=== PATIENT | female | born 1935 | race Caucasian/White ===

== ENCOUNTER 2024-11-13 12:27 | Inpatient (IN) | payer OTHER, SELFPAY ==
[2024-11-13] VITALS (10 sets, daily range): BP systolic 131–197; BP diastolic 64–144; BMI 27.7
--- NOTE | 2024-11-13 09:18 | ED.GENMED ---
History of Present Illness
<Lisette Galvez PA-C - Last Filed: 11/13/24 11:58>
General
Chief Complaint: Fall
Source: patient and ambulance crew
Exam Limitations: none
Time Seen by Provider: 11/13/24 09:14
History of Present Illness
History of Present Illness:
89yoF with a history of hypertension, hyperlipidemia, type 2 diabetes, and CKD presenting via EMS for evaluation after a fall around 7:30am this morning. Patient was in her kitchen this morning making tea. She states her slipper got caught and she
fell directly on her right hip. She denies any head strike or loss of consciousness. Patient was able to crawl on the floor and called EMS. Patient's only current complaint is right hip pain. She denies any headache, neck pain, back pain,
shortness of breath. She takes a baby aspirin daily. No prior surgeries to the right hip. Patient lives independently and has a cane but does not use it regularly.
Past History
<Lisette Galvez PA-C - Last Filed: 11/13/24 11:58>
Past History
ED Past Medical History: HTN, Hypercholesterolemia and NIDDM
ED Past Surgical History: Appendectomy
Social History
Tobacco: Non-smoker
Phy Exam
<Lisette Galvez PA-C - Last Filed: 11/13/24 11:58>
General Physical Exam
General Presentation: well appearing
General Skin: warm and dry
General Habitus: normal and elderly
General Mental: alert
ENT Exam
ENT Exam: normocephalic and other (No external signs of head trauma. No cervical spine tenderness.)
Eye Exam
Eye Exam: PERRL and conjunctiva normal
Cardiovascular Exam
Cardiovascular Exam: normal peripheral pulses (2+ DP pulses bilaterally)
Pulmonary Exam
Pulmonary Exam: lungs clear, no respiratory distress, no rales, chest non tender, no crackles and no rhonchi
Gastrointestinal Exam
Gastrointestinal Exam: non tender, soft and non distended
Neurological Exam
Neurological Exam: alert
Mainor Coma Scale
Eye Opening: Spontaneous
Verbal Response: Oriented
Motor Response: Obeys Commands
GCS Total Score: 15
Musculoskeletal Exam
Musculoskeletal Exam: other (R leg is shortened and externally rotated. Swelling noted to R groin region. Unable to range R hip joint. Able to wiggle toes and sensation intact. 2+ DP pulse.)
Skin Exam
Skin Exam: warm/dry and other (Skin tear noted to L elbow)
Psychiatric Exam
Psychiatric Exam: normal mood/affect
<Nathan Bull DO - Last Filed: 11/13/24 10:49>
Mainor Coma Scale
GCS Total Score: 15
Course
<Lisette Galvez PA-C - Last Filed: 11/13/24 11:58>
Orders/Labs/Results
Orders:
Orders
11/13/24 09:16
Fentanyl Citrate/Pf [Sublimaze] 50 mcg IV NOW STA
Tetanus/Diphth/Acelpertussis [Adacel] 0.5 ml IM .ONCE ONE
CR Femur - Right Min 2 Vw Urgent
Comment:
Reason For Exam: R hip pain, fall
Pelvis, 1 or 2 Views CR [CR Pelvis - 1 Or 2 Views ] Urgent
Comment:
Reason For Exam: R hip pain
11/13/24 09:37
Comprehensive Metabolic Panel Urgent
11/13/24 09:38
Complete Blood Count/With Diff Urgent
11/13/24 Lunch
NPO
Allow oral meds: Yes
Allow clear liquids: Sips of Clears
11/13/24 11:01
ORTHOPEDIC CONSULT Urgent
Consulting Provider: Alex Pena
Was physician already notified: Yes
11/13/24 11:27
EKG [Electrocardiogram (*1)] Routine
Reason for Study: Other
Other Reason for Exam: preoperative clearance
11/13/24 11:49
Code Status As Directed
Resuscitation Status: Full Code
Bisacodyl [Dulcolax] 10 mg RECTAL [id number] PRN
Docusate W/Senna [Senokot-S] 1 tablet PO BIDPRN PRN
Polyethylene Glycol Powder [Miralax] 17 grams PO DAILYPRN PRN
Activity As Directed
Activity Level: As Tolerated
Pneumatic Compression Sleeves As Directed
Type: Knee high
DX Deep Vein Thrombosis Video Routine
11/13/24 11:54
CT Pelvis W/o Iv Contrast Urgent
Comment:
Reason For Exam: R hip fracture, ortho request
HYDROmorphone [Dilaudid] 0.2 mg IV Q4HPRN PRN
11/14/24 06:00
Complete Blood Count/With Diff IN AM
Comprehensive Metabolic Panel IN AM
Creatine Phosphokinase IN AM
Magnesium IN AM
PTT IN AM
Prothrombin Time IN AM
TSH IN AM
Abnormal Lab Results
11/13/24 11/13/24
09:37 09:38
MCHC 32.1 L g/dL
(33.0-37.0)
MPV 10.6 H fL
(7.4-10.4)
Absolute Neuts (auto) 7.2 H 10^3/uL
(1.4-6.5)
Absolute Lymphs (auto) 0.9 L 10^3/uL
(1.2-3.4)
Neutrophils % 79.8 H %
(42.2-75.2)
Lymphocytes % 10.1 L %
(20.5-51.1)
BUN 44 H mg/dl
(7-17)
Creatinine 1.5 H mg/dL
(0.6-1.0)
Glucose 198 H mg/dl
(70-99)
11/13/24 09:38
11/13/24 09:37
Vital Signs
Initial and Last Documented VS:
Initial Vital Signs
Temp Pulse Resp BP Pulse Ox
97.5 F 67 16 167/81 97
11/13/24 09:12 11/13/24 09:12 11/13/24 09:12 11/13/24 09:12 11/13/24 09:12
Last Documented Vital Signs
Temp Pulse Resp BP Pulse Ox
97.5 F 58 16 151/65 99
11/13/24 09:12 11/13/24 10:40 11/13/24 10:40 11/13/24 11:00 11/13/24 11:00
<Nathan Bull, DO - Last Filed: 11/13/24 10:49>
Orders/Labs/Results
Orders:
Orders
11/13/24 09:16
Fentanyl Citrate/Pf [Sublimaze] 50 mcg IV NOW STA
Tetanus/Diphth/Acelpertussis [Adacel] 0.5 ml IM .ONCE ONE
CR Femur - Right Min 2 Vw Urgent
Comment:
Reason For Exam: R hip pain, fall
Pelvis, 1 or 2 Views CR [CR Pelvis - 1 Or 2 Views ] Urgent
Comment:
Reason For Exam: R hip pain
11/13/24 09:37
Comprehensive Metabolic Panel Urgent
11/13/24 09:38
Complete Blood Count/With Diff Urgent
11/13/24 Lunch
NPO
Allow oral meds: Yes
Allow clear liquids: Sips of Clears
11/13/24 11:01
ORTHOPEDIC CONSULT Urgent
Consulting Provider: Alex Pena
Was physician already notified: Yes
11/13/24 11:27
EKG [Electrocardiogram (*1)] Routine
Reason for Study: Other
Other Reason for Exam: preoperative clearance
11/13/24 11:49
Code Status As Directed
Resuscitation Status: Full Code
Bisacodyl [Dulcolax] 10 mg RECTAL [id number] PRN
Docusate W/Senna [Senokot-S] 1 tablet PO BIDPRN PRN
Polyethylene Glycol Powder [Miralax] 17 grams PO DAILYPRN PRN
Activity As Directed
Activity Level: As Tolerated
Pneumatic Compression Sleeves As Directed
Type: Knee high
DX Deep Vein Thrombosis Video Routine
11/13/24 11:54
CT Pelvis W/o Iv Contrast Urgent
Comment:
Reason For Exam: R hip fracture, ortho request
HYDROmorphone [Dilaudid] 0.2 mg IV Q4HPRN PRN
11/14/24 06:00
Complete Blood Count/With Diff IN AM
Comprehensive Metabolic Panel IN AM
Creatine Phosphokinase IN AM
Magnesium IN AM
PTT IN AM
Prothrombin Time IN AM
TSH IN AM
Abnormal Lab Results
11/13/24 11/13/24
09:37 09:38
MCHC 32.1 L g/dL
(33.0-37.0)
MPV 10.6 H fL
(7.4-10.4)
Absolute Neuts (auto) 7.2 H 10^3/uL
(1.4-6.5)
Absolute Lymphs (auto) 0.9 L 10^3/uL
(1.2-3.4)
Neutrophils % 79.8 H %
(42.2-75.2)
Lymphocytes % 10.1 L %
(20.5-51.1)
BUN 44 H mg/dl
(7-17)
Creatinine 1.5 H mg/dL
(0.6-1.0)
Glucose 198 H mg/dl
(70-99)
11/13/24 09:38
11/13/24 09:37
Vital Signs
Initial and Last Documented VS:
Initial Vital Signs
Temp Pulse Resp BP Pulse Ox
97.5 F 67 16 167/81 97
11/13/24 09:12 11/13/24 09:12 11/13/24 09:12 11/13/24 09:12 11/13/24 09:12
Last Documented Vital Signs
Temp Pulse Resp BP Pulse Ox
97.5 F 58 16 151/65 99
11/13/24 09:12 11/13/24 10:40 11/13/24 10:40 11/13/24 11:00 11/13/24 11:00
<Lisette Galvez PA-C - Last Filed: 11/13/24 11:58>
MDM/Problems Addressed
Differential Diagnosis Includes:
89yoF here after a mechanical fall at home this morning. Fell directly on R hip and RLE is shortened and externally rotated on arrival. Only other injury appreciated on exam is a skin tear to the L arm. She denies head strike and there are no
external signs of head trauma. No cervical spine tenderness noted. Differential diagnosis includes but is not limited to: hip fracture, femur fracture, hip dislocation
Initial ED plan: Check basic labs and pelvic/R femur x-rays. IV fentanyl for pain. Update Tdap.
<Lisette Galvez PA-C - Last Filed: 11/13/24 11:58>
*Critical Care Note
Total Time (30-74mins, 75-104mins- exclusive of procedures): Not Applicable
<Lisette Galvez PA-C - Last Filed: 11/13/24 11:58>
Update Note
Update Note:
X-rays confirm an intertrochanteric fracture. Orthopedics notified and patient admitted for further management.
ED Attending Note
<Lisette Galvez PA-C - Last Filed: 11/13/24 11:58>
-
Portions of this chart may have been created with voice recognition software.� Occasional wrong word or��sound alike� substitutions may have occurred due to the inherent limitations of voice recognition software.
<Nathan Bull DO - Last Filed: 11/13/24 10:49>
ED Attending Note
Patient seen and examined by attending physician: Yes
I performed the substantive portion of visit, reviewed & personally made and approve the management plan that is documented in note by myself or ELI.: Yes
ED Attending Note:
Seen with PA examined independently elderly female slip and fall with a resulting right hip fracture
Discharge Plan
Departure
Patient Disposition: Admit
Date of Disposition: 11/13/24
Time of Disposition: 10:44
Presentation/result/management discussed w/ accepting MD/DO: Hospitalist
Discharge Problem:
Closed fracture of right hip
Prescriptions:
No Action
amlodipine 5 MG tablet
5 mg PO DAILY
simvastatin 20 MG tablet
40 mg PO QPM
fluoxetine 10 MG capsule
10 mg PO DAILY
glipizide 2.5 mg Tablet Extended Release 24hr
2.5 mg PO DAILY
aspirin 81 mg Tablet
81 mg PO DAILY
Referrals:
Annelise Schafer CRNP [Family Provider] -
Interventions
Interventions:
*Risk Screen - Suicide Last Done: 11/13/24 10:55
*General Assessment Last Done: 11/13/24 10:55
*Neglect/Abuse Screening Last Done: 11/13/24 10:55
ED-Musculoskeletal Assessment Last Done: 11/13/24 09:17
ED- Neurological Assessment Last Done: 11/13/24 09:17
ED-Skin Assessment Last Done: 11/13/24 09:17
Discharge Date and Time
Print Language: UZBEK
[2024-11-13] MEDS: ADACEL 0.5 ML IM (09:30)
[2024-11-13] MEDS: SUBLIMAZE 50 MCG IV (09:30)
[2024-11-13 09:46] LABS: % Basophils 0.4 % (0-2); % Eosinophils 3.9 % (0-6); % Immature Granulocytes 0.3 % (0-0.5); % Lymphocytes 10.1 % (20.5-51.1); % Monocytes 5.5 % (1.7-9.3); % Neutrophils 79.8 % (42.2-75.2); Absolute Eosinophils 0.4 10^3/uL (0-0.7); Absolute Lymphocytes 0.9 10^3/uL (1.2-3.4); Absolute Monocytes 0.5 10^3/uL (0.1-0.6); Absolute Neutrophils 7.2 10^3/uL (1.4-6.5); Hematocrit 39.6 % (37.0-47.0); Hemoglobin 12.7 g/dL (12.0-16.0); Mean Corp Hgb Conc. 32.1 g/dL (33.0-37.0); Mean Corpuscular Hgb 28.3 pg (27.0-31.0); Mean Corpuscular Volume 88.4 fL (81.0-99.0); Mean Platelet Volume 10.6 fL (7.4-10.4); Nucleated Red Blood Cells % 0 %; Platelet Count 245 10^3/uL (130-400); Red Blood Cell Count 4.48 10^6/uL (4.20-5.40); Red Cell Dist. Width 14.2 % (11.5-14.5)
[2024-11-13 10:17] LABS: ALT (SGPT) 17 U/L (0-35); AST (SGOT) 23 U/L (14-36); Albumin 4.3 g/dl (3.5-5.0); Alkaline Phosphatase 71 U/L (38-126); Blood Urea Nitrogen 44 mg/dl (7-17); Calcium 9.7 mg/dl (8.4-10.2); Carbon Dioxide 25 mmol/L (22-30); Chloride 104 mmol/L (98-107); Estimated Creatinine Clearance 23 ml/min; Glucose 198 mg/dl (70-99); Potassium 4.3 mmol/L (3.5-5.1); Sodium 141 mmol/L (135-145); Total Bilirubin 0.6 mg/dl (0.2-1.3); eGFR 33.52
--- NOTE | 2024-11-13 11:26 | W.PN.UPDATE ---
Update Note
Progress Note Update
I personally performed a history and physical exam of the patient and discussed management with the resident. I reviewed the resident's note and agree with the documented findings and plan of care HPI/CC.
89-year-old female who presents with a mechanical fall resulting in a right hip fracture. The patient reports this was a mechanical fall. She had no loss of consciousness/syncope. At baseline patient reports she can climb a flight of stairs or
walk around the block without having chest pain or shortness of breath.
Gen: NAD, AAOx3.
Eyes: EOMI, PERRLA, no scleral icterus.
Neck: supple.
CV: RRR, +S1/S2, no m/r/g. 2+ R DP pulse.
Resp: CTAB, no rales, wheezes, or rhonchi.
Abd: +BS, soft, NT, ND
Skin: No rashes.
Neuro: CN 2-12 intact, non-focal.
Psych: Normal mood and affect.
Lab Results
11/13/24 11/13/24
09:37 09:38
WBC 9.0
RBC 4.48
Hgb 12.7
Hct 39.6
MCV 88.4
MCH 28.3
MCHC 32.1 L
RDW 14.2
Plt Count 245
MPV 10.6 H
Abs Immat Gran (auto) 0.0
Absolute Neuts (auto) 7.2 H
Absolute Lymphs (auto) 0.9 L
Absolute Monos (auto) 0.5
Absolute Eos (auto) 0.4
Absolute Basos (auto) 0.0
Immature Gran % 0.3
Neutrophils % 79.8 H
Lymphocytes % 10.1 L
Monocytes % 5.5
Eosinophils % 3.9
Basophils % 0.4
Nucleated RBC % 0
Sodium 141
Potassium 4.3
Chloride 104
Carbon Dioxide 25
BUN 44 H
Creatinine 1.5 H
Estimated Creat Clear 23
eGFR 33.52
Glucose 198 H
Calcium 9.7
Total Bilirubin 0.6
AST 23
ALT 17
Alkaline Phosphatase 71
Total Protein 7.0
Albumin 4.3
R femur/pelvis Xray: ACUTE COMMINUTED INTERTROCHANTERIC FRACTURE of the RIGHT PROXIMAL FEMUR.
Acute comminuted intertrochanteric right proximal femur fracture:
-Regarding perioperative cardiovascular risk assessment for noncardiac surgery, the patient's risk factors include DM2 and CKD3b. Currently the patient has no evidence of stable or unstable angina or decompensated congestive heart failure. MET
score > 4. I recommend proceeding with any planned orthopedic surgery (moderate risk by definition) as the benefit outweighs the risk at this time. [employer] message sent to Dr. Pena at 1133 on 11/13/24 to report on this.
Other problems:
DM2: SSI/accuchecks, check a1c
Essential HTN: cont Norvasc
HLD: cont statin
--- NOTE | 2024-11-13 13:10 | HPS.HSE ---
Family Physician
-
Family Physician: LANA Meredith
Chief Complaint
-
- Severe Pain in the right hip
History of Present Illness
89-year-old female, full code, with a past medical history of HTN, HLD, Diabetes mellitus type 2, CKD presented to the ED because she fell and tripped, landing on her right hip in her kitchen. She then felt severe pain, and crawled to her phone
where she called 911 and was brought to the ED via EMS. She did not hit her head or lose consciousness.
Medical History
Past Medical History
Past Medical History: Reports HTN, Hypercholesterolemia, NIDDM and Other (Chronic kidney disease)
Past Surgical History: Reports None
Social History
Tobacco: Former Smoker
Alcohol: None
Drug: None
Family History
Family History: Not pertinent
Allergies / Home Medications
Allergies reflects when Allergies were last updated in [facility].
Home Medications with original date entered in [facility]
Allergy/Medication List:
Allergies
Allergy/AdvReac Type Severity Reaction Status Date / Time
lisinopril Allergy Swelling Verified 11/13/24 09:16
Home Medications
amlodipine 5 mg tablet 5 mg PO DAILY 07/07/21
fluoxetine 10 mg capsule 10 mg PO DAILY 07/07/21
simvastatin 20 mg tablet 40 mg PO QPM 07/07/21
aspirin 81 mg tablet 81 mg PO DAILY 11/13/24
glipizide 2.5 mg tablet, extended release 24 hr 2.5 mg PO DAILY 11/13/24
Review of Systems
-
History Source: Patient
A 12 point ROS was completed and negative except as noted: Yes
Musculoskeletal: Reports Joint Pain (right upper extremity), Joint Swelling (right upper extremity) and Edema (right upper extremity)
Physical Exam
Vital Signs
Vital Signs
Temp Pulse Resp BP Pulse Ox
97.5 F 58 16 151/65 99
11/13/24 09:12 11/13/24 10:40 11/13/24 10:40 11/13/24 11:00 11/13/24 11:00
Physical Exam
General: Well Developed
Respiratory: Clear; No Rales, Rhonchi or Crackles
Cardiac: S1/S2 and Regular Rhythm
GI: Soft, Non Tender, Non Distended and Normal Bowel Sounds
Musculoskeletal: Other (There is severe tenderness to palpation of right upper extremity with limited range of motion and edema)
Skin: Warm and Dry
Neuro: Awake, Alert, Oriented, AO x 3 and DTR's Intact & Symmetrical
Psych: Calm
Laboratory Results
-
11/13/24 09:38
11/13/24 09:37
Laboratory Results
Total Bilirubin 0.6 mg/dl (0.2-1.3) 11/13/24 09:37
AST 23 U/L (14-36) 11/13/24 09:37
ALT 17 U/L (0-35) 11/13/24 09:37
Alkaline Phosphatase 71 U/L (38-126) 11/13/24 09:37
Data Reviewed
-
Diagnostic Radiology: Report Reviewed by me and Discussed with Physician
Lab Data: Labs Reviewed by me and Discussed with Physician
Impression/Plan
-
Acute comminuted intertrochanteric fracture of the right proximal femur:
- Ortho was consulted
- N.p.o. for anticipation of procedure
- Pain management IV Dilaudid 0.2 mg Q4 hourly and Tylenol
- Preoperative clearance
- CBC CMP PT/INR ordered for the a.m.
- Continue IV normal saline
- PT OT was consulted
Diabetes mellitus type 2:
-Glucose 198
- Sliding scale insulin
- Accu-Cheks as needed
- A1c ordered
CKD 3B:
- Creatinine is 1.5 today and is near baseline
-Blood pressure control
- Avoid nephrotoxins
Essential hypertension:
- Continue Norvasc
Hyperlipidemia:
- Continue simvastatin
Depression:
- Continue fluoxetine
Stop aspirin because of anticipated surgery
DVT prophylaxis: SCDs
Full code
[2024-11-13] MEDS: DILAUDID 0.2 MG IV (13:28)
[2024-11-13] MEDS: NSS 1000 IV (15:41)
[2024-11-13] MEDS: NORVASC 5 MG PO (15:48)
[2024-11-13] MEDS: PROZAC 10 MG PO (17:16)
[2024-11-13] MEDS: APRESOLINE 10 MG IV (17:16)
[2024-11-13] MEDS: DILAUDID 0.5 MG IV ×2 (17:17→21:21)
[2024-11-13] MEDS: LIPITOR 20 MG PO (17:45)
--- NOTE | 2024-11-13 21:51 | W.PN.UPDATE ---
Update Note
Progress Note Update
Patient was seen evaluated at bedside. Had a long discussion the patient as well as her daughter on the telephone. They elected to proceed with surgery.
89-year-old female right comminuted peritrochanteric femur fracture.
Nonweightbearing right lower extremity
N.p.o. at midnight
Please hold anticoagulation preparation for OR in the morning
Medical management per primary team
Plan: 2 OR tomorrow for operative fixation insertion long cephalomedullary nail for four-part peritrochanteric femur fracture pending or availability and medical clearance.
Formal consult note to follow
[2024-11-13 22:53] LABS: Glucose - Point of Care 195 mg/dl (70-99)
[2024-11-14] VITALS (17 sets, daily range): BP systolic 95–185; BP diastolic 51–79
--- NOTE | 2024-11-14 02:58 | W.PN.UPDATE ---
Update Note
Progress Note Update
-Reported by the nursing staff that the patient has difficult swallowing water and meds.
Diet changed to NPO and speech eval in am ordered.
[2024-11-14] MEDS: DILAUDID 0.5 MG IV (04:42)
[2024-11-14] MEDS: NSS 1000 IV ×3 (05:33→23:07)
[2024-11-14 05:50] LABS: Glucose - Point of Care 160 mg/dl (70-99)
--- NOTE | 2024-11-14 07:26 | W.PN.HOSP.TC ---
Today's Communication/Plan
-
see plan
Assessment / Plan
Assessment / Plan
Gen: NAD, AAOx3.
Eyes: EOMI, PERRLA, no scleral icterus.
Neck: supple.
CV: remains RRR, +S1/S2, no m/r/g.
Resp: CTAB anteriorly, no rales, wheezes, or rhonchi.
Abd: remains +BS, soft, NT, ND
Skin: No rashes.
Neuro: CN 2-12 intact, non-focal.
Psych: Normal mood and affect.
R femur/pelvis Xray: ACUTE COMMINUTED INTERTROCHANTERIC FRACTURE of the RIGHT PROXIMAL FEMUR.
Acute comminuted intertrochanteric right proximal femur fracture:
-Regarding perioperative cardiovascular risk assessment for noncardiac surgery, the patient's risk factors include DM2 and CKD3b. Currently the patient has no evidence of stable or unstable angina or decompensated congestive heart failure. MET
score > 4. I recommend proceeding with any planned orthopedic surgery (moderate risk by definition) as the benefit outweighs the risk at this time. [employer] message sent to Dr. Pena at 1133 on 11/13/24 to report on this.
-OR today as per ortho
Other problems:
DM2: SSI/accuchecks, check a1c
Essential HTN: cont Norvasc
HLD: cont statin
CKD3b
FULL/SCDs
Anticipated Discharge: 24 - 48 hours
Subjective/Interval History
-
Date of Service: November 14, 2024
No new complaints. Denies CP/SOB.
Objective Data
-
Labs:
Laboratory Results
11/14/24
06:42
WBC Pending
Hgb Pending
Hct Pending
Plt Count Pending
PT Pending
INR Pending
APTT Pending
Sodium Pending
Potassium Pending
Chloride Pending
Carbon Dioxide Pending
BUN Pending
Creatinine Pending
Glucose Pending
Calcium Pending
Total Bilirubin Pending
AST Pending
ALT Pending
Alkaline Phosphatase Pending
Vital Signs:
Vital Signs
Temp Pulse Resp BP Pulse Ox
98.1 F 84 16 150/74 95
11/13/24 23:04 11/13/24 23:04 11/13/24 23:04 11/13/24 23:04 11/14/24 00:31
I&O
11/13/24 11/14/24 11/15/24
06:59 06:59 06:59
Intake Total 1680 / 1680
Output Total 250 / 250
Balance 1430 / 1430
--- NOTE | 2024-11-14 07:49 | CON.ORTHO ---
Consultation
-
Date/Time Consultation Performed: 11/13/2024 9:30 PM
Consultation - Orthopedics
History
HPI: 89-year-old independent female history of hypertension hyperlipidemia type 2 diabetes chronic kidney disease presented to the emergency department status post fall at home with complaints of right hip pain and inability to bear weight. She was
subsequently diagnosed with a comminuted right peritrochanteric femur fracture. She was admitted to the hospitalist service and orthopedics was consulted. I had a long discussion with the patient as well as her daughter on the telephone. Patient
reports pain well localized to the right lower extremity. Pain is made worse with direct palpation affected area with attempted ambulation. Patient reports to me that she is quite independent lives alone and does not use any assistive devices for
walking continues to drive.
Allergies / Home Medications
Past medical history: Hypertension, hyper cholesterolemia, non-insulin dependent diabetes, chronic kidney disease
Past surgical history: Appendectomy
Social history: Lives independently, non-smoker. Has 2 daughters that live locally
Family history: Not pertinent
Allergy/AdvReac Type Severity Reaction Status Date / Time
lisinopril Allergy Swelling/lip Verified 11/13/24 22:31
swelling
�Medication �Instructions �Recorded
amlodipine 5 mg tablet 5 mg PO DAILY 07/07/21
fluoxetine 10 mg capsule 10 mg PO DAILY 07/07/21
simvastatin 20 mg tablet 40 mg PO QPM 07/07/21
aspirin 81 mg tablet 81 mg PO DAILY 11/13/24
glipizide 2.5 mg tablet, extended 2.5 mg PO DAILY 11/13/24
release 24 hr
Vital Signs / Lab Results
Temp Pulse Resp BP Pulse Ox
97.7 F 84 16 185/79 96
11/14/24 07:30 11/14/24 07:30 11/14/24 07:30 11/14/24 07:30 11/14/24 07:30
10 point review systems reviewed and negative unless otherwise stated
General: Pleasant, no acute distress
Musculoskeletal right lower extremity
Skin intact, no erythema recommended standing
Mild to moderate swelling noted right thigh
Extremity shortened externally rotated
Tenderness palpation over lateral trochanteric flare and groin
No palpable ipsilateral knee effusion
Positive EHL, FHL, ankle dorsiflexion, plantarflexion
Brisk cap refill distally
No other areas of bony tenderness palpation or crepitation of long bones or joints on tertiary exam
Diagnostic studies
X-rays right femur pelvis as well as CT scan right hip independently viewed by myself. There is evidence of comminuted right peritrochanteric femur fracture. I would characterize this as somewhat of a four-part fracture with greater trochanteric
component, subtrochanteric component as well as basicervical femoral neck fracture. There is also noted to be displaced lesser trochanteric fracture
Assessment / Plan
89-year-old community ambulator status post fall with comminuted right peritrochanteric femur fracture. I had a long and detailed discussion with the patient as well as her daughters regarding diagnosis and treatment options. We discussed both
surgical and nonsurgical options. We discussed both arthroplasty and fixation options. After discussion we mutually agreed to proceed with operative fixation in the form of insertion along supplemental nail. We discussed risks benefits and
alternatives to surgery. We discussed the usual expected perioperative postoperative course. After discussion written informed consent was obtained
Nonweightbearing right lower extremity
N.p.o.
Please hold anticoagulation
Medical management per primary team
Pain control
Plan: 2 OR for operative fixation right peritrochanteric femur fracture pending OR availability and medical clearance
[2024-11-14] MEDS: PROZAC PO (08:00)
[2024-11-14] MEDS: NORVASC PO (08:00)
[2024-11-14 08:19] LABS: % Basophils 0.3 % (0-2); % Eosinophils 0.2 % (0-6); % Immature Granulocytes 0.3 % (0-0.5); % Monocytes 7.2 % (1.7-9.3); Absolute Monocytes 0.7 10^3/uL (0.1-0.6); Hematocrit 34.4 % (37.0-47.0); Mean Corpuscular Hgb 28.3 pg (27.0-31.0); Mean Corpuscular Volume 88.4 fL (81.0-99.0); Mean Platelet Volume 11.1 fL (7.4-10.4); Nucleated Red Blood Cells % 0 %; Platelet Count 224 10^3/uL (130-400); Red Blood Cell Count 3.89 10^6/uL (4.20-5.40); Red Cell Dist. Width 14.6 % (11.5-14.5); White Blood Cell Count 9.8 10^3/uL (4.8-10.8)
[2024-11-14 08:31] LABS: INR 1.14; PT 14.9 Sec (11.4-14.6)
[2024-11-14 08:43] LABS: ALT (SGPT) 17 U/L (0-35); AST (SGOT) 29 U/L (14-36); Albumin 3.7 g/dl (3.5-5.0); Alkaline Phosphatase 62 U/L (38-126); Blood Urea Nitrogen 37 mg/dl (7-17); Calcium 9.4 mg/dl (8.4-10.2); Carbon Dioxide 26 mmol/L (22-30); Chloride 107 mmol/L (98-107); Creatine Phosphokinase 406 U/L (30-135); Estimated Creatinine Clearance 23 ml/min; Glucose 163 mg/dl (70-99); Magnesium 2.1 mg/dl (1.6-2.3); Sodium 142 mmol/L (135-145); Total Bilirubin 0.9 mg/dl (0.2-1.3); Total Protein 6.4 g/dl (6.3-8.2); eGFR 33.52
[2024-11-14] MEDS: NOVOLOG FLEXPEN-LOW RESISTANCE SC ×2 (08:55→11:41)
[2024-11-14 09:13] LABS: TSH 0.87 uIU/ml (0.47-4.68)
--- NOTE | 2024-11-14 10:34 | OR.RPT ---
Operative Report
Operative Report
Date
11/14/2024
Anesthesia Type:
General
Operative Indications:
Comminuted displaced right peritrochanteric femur fracture
Operative Findings :
Comminuted displaced right peritrochanteric femur fracture, greater trochanteric component, basicervical femoral neck component, intertrochanteric/subtrochanteric component
Complications:
None
Implants:
Dona Ana gamma nail 360 mm x 10 mm, 95 mm cephalomedullary screw, 42.5 x 5 mm, 45 x 5 mm interlocking screws
Procedure and Technique:
Insertion right long cephalomedullary nail
INDICATIONS FOR PROCEDURE:
Patient is an active independent 89-year-old female sustained mechanical fall onto her right hip ultimately diagnosed with a right peritrochanteric femur fracture. Discussed risks benefits and alternatives with patient and family. Ultimately
elected to proceed with right cephalomedullary nail fixation of right hip fracture. Discussed risks benefits and alternatives to surgery. Discussed the use of expected perioperative and postoperative course. After discussion written informed
consent was obtained
OPERATIVE PROCEDURE:
The patient was seen and identified in the preoperative holding area. The operative extremity was marked and all questions were addressed with the patient. Patient was taken to the operating room and provided anesthesia by the anesthesia team.
They were placed supine on a radiolucent fracture table. The nonoperative extremity was placed in a scissored position and well padded to the contralalteral post of the fracture table. Extremities was placed in a well-padded fracture boot.
Biplanar fluoroscopy confirmed appropriate reduction after axial traction, adduction and slight internal rotation of the operative extremity. There was noted to be persistent displacement despite closed reduction. Operative extremity was then
prepped and draped in normal sterile fashion. Timeout was performed again identifying the operative extremity correctly. Preoperative antibiotics were addressed.
A small incision was made over the lateral femur in line with the lesser trochanter. Sharp dissection was carried through skin subcutaneous tissues deep fascial layer. A Gore clamp was placed on the inferior femoral neck and greater trochanter
and reduction was performed of the fracture. A small incision was made several fingerbreadths proximal to the greater trochanter. Sharp dissection was carried through skin and subcutaneous tissues and deep fascial layers. Guidepin was then
inserted under biplanar fluoroscopic guidance through the tip of the greater trochanter in accordance with the implant's operative technique. This was inserted to a depth just distal to the lesser trochanter. Proximal opening reamer was then
utilized. Stepwise reaming was then performed to accept a 10 mm nail. A cephalomedullary nail was then inserted to the appropriate depth. Trocar was then inserted through the aiming arm. Sharp dissection was then carried through skin and
subcutaneous tissues as well as deep fascial layers for an additional stab incision for the cephalomedullary screw. Guidewire was inserted through the trocar into the femoral neck and head. Appropriate position was confirmed under biplanar
fluoroscopy. Attention was made to minimize the tip apex distance. Measurements were obtained for the cephalomedullary screw. Cannulated drill was then utilized to the appropriate depth followed by the insertion of cannulated cephalomedullary
screw. Appropriate final position of the screw within the confines of the femoral neck and head was confirmed again on biplanar fluoroscopy. Setscrew was deployed. attention was then turned to the distal femur where 2 additional interlocking screws
were placed via perfect kasaan technique through small stab incisions. Final appropriate positioning was confirmed again on biplanar fluoroscopy. Satisfied with the extent of surgery, wounds were copiously irrigated with normal saline solution and
closed in a layered fashion utilizing 0 Vicryl for deep fascial layer, 2-0 Vicryl for subcu cutaneous layer and norma for skin. Sterile dressings were applied. Anesthesia was reversed and patient was taken to the operating room in a stable
condition. Postoperative plan to include weightbearing to patient's tolerance upper extremity. Recommend DVT prophylaxis Lovenox renally dosed x 28 days. Plan to see patient back in 2 weeks in the office
Disposition:
PACU stable condition
[2024-11-14 10:35] LABS: Glycohemoglobin (HgbA1c) 6.8 % (4.0-5.6)
[2024-11-14] MEDS: NSS IV ×2 (10:45→22:47)
[2024-11-14 10:59] LABS: Glucose - Point of Care 175 mg/dl (70-99)
--- NOTE | 2024-11-14 11:38 | PTCARENOTE ---
Dr Huang aware of patients respiratory status, evaluated patient. He is also aware of bedside glucose of 175
--- NOTE | 2024-11-14 12:50 | PTCARENOTE ---
Patient postop r-hip gamma nail, agitated/attempting to remove things and also attempting to hurt staff. Yelling expletives. In 2-point restraints at this point, hospitalist notified.
--- NOTE | 2024-11-14 14:05 | CM ---
Patient seen at bedside in [address] [place] [address]. Patient resting, CM called to patient daughter. Per daughter patient was living alone in an apartment with elevator. The complex is a 50+ senior apartment but independent living, patient was on 2nd floor. Patient
daughter stated that patient has no DME at home, no past SNF. Patient family lives in [place] and they are interested in possible SNF options there. Patient daughter stated that she has several sisters and they would be discussing options. Patient PCP is
Annelise Schafer and she uses the [facility] in [place]. CM reviwed list of SNF options and Medicare.gov to consider options pending PT/OT assessment and functional status. CM will continue to follow for discharge planning needs.
Plan; pending functional assessment; SNF vs home with VN, family considering options.
[2024-11-14] MEDS: ANCEF 5 IV ×2 (16:41→23:08)
[2024-11-14 17:59] LABS: Glucose - Point of Care 198 mg/dl (70-99)
[2024-11-14] MEDS: NOVOLOG FLEXPEN-LOW RESISTANCE 1 UNITS SC (18:15)
[2024-11-14] MEDS: LIPITOR 20 MG PO (18:17)
[2024-11-14] MEDS: COLACE PO (21:22)
[2024-11-14 22:06] LABS: Glucose - Point of Care 230 mg/dl (70-99)
[2024-11-15] VITALS (12 sets, daily range): BP systolic 113–171; BP diastolic 52–74; PULSE 95–98; O2SAT 94
[2024-11-15 07:32] LABS: Glucose - Point of Care 175 mg/dl (70-99)
[2024-11-15] MEDS: COLACE 100 MG PO (07:42)
[2024-11-15] MEDS: NOVOLOG FLEXPEN-LOW RESISTANCE 1 UNITS SC ×2 (07:42→17:06)
[2024-11-15] MEDS: LOVENOX 30 MG SC (07:45)
[2024-11-15] MEDS: NORVASC 5 MG PO (07:45)
[2024-11-15] MEDS: NSS 1000 IV (07:46)
[2024-11-15] MEDS: PROZAC 10 MG PO (07:46)
--- NOTE | 2024-11-15 08:32 | W.PN.HOSP.TC ---
Today's Communication/Plan
-
d/c
Assessment / Plan
Assessment / Plan
Gen: NAD, Awake and alert
Eyes: EOMI, PERRLA, no scleral icterus.
Neck: supple.
CV: RRR, +S1/S2, no m/r/g.
Resp: CTAB anteriorly, no rales, wheezes, or rhonchi.
Abd: +BS, soft, NT, ND
Skin: No rashes.
Neuro: remains CN 2-12 intact, non-focal.
Psych: Normal mood and affect.
R femur/pelvis Xray: ACUTE COMMINUTED INTERTROCHANTERIC FRACTURE of the RIGHT PROXIMAL FEMUR.
Acute comminuted intertrochanteric right proximal femur fracture:
-Regarding perioperative cardiovascular risk assessment for noncardiac surgery, the patient's risk factors include DM2 and CKD3b. Currently the patient has no evidence of stable or unstable angina or decompensated congestive heart failure. MET
score > 4. I recommend proceeding with any planned orthopedic surgery (moderate risk by definition) as the benefit outweighs the risk at this time. [employer] message sent to Dr. Pena at 1133 on 11/13/24 to report on this.
-s/p Insertion right long cephalomedullary nail on 11/14/24
Other problems:
DM2: a1c 6.8%, SSI/accuchecks
Essential HTN: cont Norvasc
HLD: cont statin
CKD3b
FULL/Lovenox
Medically cleared for d/c (pending AM labs). Case management aware.
Anticipated Discharge: Today
Subjective/Interval History
-
Date of Service: November 15, 2024
Denies CP/SOB.
Objective Data
-
Vital Signs:
Vital Signs
Temp Pulse Resp BP Pulse Ox
98.0 F 83 18 125/59 92
11/15/24 07:20 11/15/24 07:45 11/15/24 07:20 11/15/24 07:45 11/15/24 07:20
I&O
11/14/24 11/15/24 11/16/24
06:59 06:59 06:59
Intake Total 1680 / 1680 150 / 150
Output Total 250 / 250
Balance 1430 / 1430 150 / 150
[2024-11-15 09:06] LABS: Blood Urea Nitrogen 45 mg/dl (7-17); Calcium 8.4 mg/dl (8.4-10.2); Carbon Dioxide 25 mmol/L (22-30); Chloride 107 mmol/L (98-107); Estimated Creatinine Clearance 20 ml/min; Glucose 130 mg/dl (70-99); Potassium 4.7 mmol/L (3.5-5.1); Sodium 139 mmol/L (135-145); eGFR 28.84
[2024-11-15 11:38] LABS: Glucose - Point of Care 230 mg/dl (70-99)
[2024-11-15 12:05] LABS: Mean Corp Hgb Conc. 31.8 g/dL (33.0-37.0); Mean Corpuscular Hgb 28.5 pg (27.0-31.0); Mean Corpuscular Volume 89.4 fL (81.0-99.0); Mean Platelet Volume 11.6 fL (7.4-10.4); Platelet Count 178 10^3/uL (130-400); Red Blood Cell Count 2.46 10^6/uL (4.20-5.40); Red Cell Dist. Width 14.6 % (11.5-14.5)
[2024-11-15] MEDS: NOVOLOG FLEXPEN-LOW RESISTANCE 2 UNITS SC (12:29)
--- NOTE | 2024-11-15 13:27 | CM ---
Referrals sent to [facility], [facility], [facility], [facility]. Await responses, CM calling to SNF's to see if answer is available. Patient will need [employer] auth prior to leaving. CM will continue to follow for discharge planning
needs.
Plan; SNF
--- NOTE | 2024-11-15 14:06 | W.PN.ORTHO ---
Today's Communication / Plan
-
89-year-old female postop day 1 status post insertion right long cephalomedullary nail for comminuted peritrochanteric femur fracture
Weightbearing as tolerated right lower extremity
PT OT
Pain control
Medical management per primary team
DVT prophylaxis: Recommend renally dosed Lovenox x 28 days
Plan to see patient back in the office in 2 to 3 weeks for repeat clinical assessment radiographs removal of norma
Subjective
.
.:
Patient resting comfortably in bed. She reports that she was spending most of the day in a chair. Reports that she is able to get out of bed and take a few steps with a walker with therapy.
Vital Signs and Labs
.
Vital Signs and Labs:
Lab Results
11/15/24 05:00
11/15/24 05:00
Temp Pulse Resp BP Pulse Ox
99.2 F 89 18 124/71 98
11/15/24 11:11 11/15/24 11:11 11/15/24 11:11 11/15/24 11:11 11/15/24 11:11
PT 14.9 Sec (11.4-14.6) H 11/14/24 06:42
INR 1.14 11/14/24 06:42
Physical Exam
-
Musculoskeletal right lower extremity
Dressings with mild bloody drainage most proximal most distal dressing, moderate bloody drainage middle dressing
Positive EHL, FHL, ankle dorsiflexion, plantarflexion
Brisk refill
[2024-11-15] MEDS: DILAUDID 0.5 MG IV (14:37)
[2024-11-15] MEDS: LIPITOR 20 MG PO (16:59)
[2024-11-15 17:07] LABS: Glucose - Point of Care 154 mg/dl (70-99)
[2024-11-15] MEDS: COLACE PO (20:14)
[2024-11-15 21:35] LABS: Glucose - Point of Care 207 mg/dl (70-99)
[2024-11-16] MEDS: NSS IV (06:16)
[2024-11-16 06:50] LABS: Hemoglobin 10.2 g/dL (12.0-16.0); Mean Corp Hgb Conc. 31.9 g/dL (33.0-37.0); Mean Corpuscular Hgb 28.8 pg (27.0-31.0); Mean Corpuscular Volume 90.4 fL (81.0-99.0); Mean Platelet Volume 10.7 fL (7.4-10.4); Platelet Count 163 10^3/uL (130-400); Red Blood Cell Count 3.54 10^6/uL (4.20-5.40)
[2024-11-16 06:53] LABS: Blood Urea Nitrogen 40 mg/dl (7-17); Calcium 8.3 mg/dl (8.4-10.2); Carbon Dioxide 24 mmol/L (22-30); Chloride 107 mmol/L (98-107); Estimated Creatinine Clearance 23 ml/min; Glucose 170 mg/dl (70-99); Potassium 4.4 mmol/L (3.5-5.1); Sodium 140 mmol/L (135-145); eGFR 33.52
[2024-11-16 07:11] VITALS: BP 144/78
[2024-11-16] MEDS: PROZAC 10 MG PO (07:15)
[2024-11-16] MEDS: COLACE 100 MG PO (07:16)
[2024-11-16] MEDS: LOVENOX 30 MG SC (07:16)
[2024-11-16] MEDS: NORVASC 5 MG PO (07:17)
[2024-11-16 07:41] LABS: Glucose - Point of Care 163 mg/dl (70-99)
[2024-11-16] MEDS: NOVOLOG FLEXPEN-LOW RESISTANCE 1 UNITS SC (07:43)
--- NOTE | 2024-11-16 08:04 | W.PN.HOSP.TC ---
Addendum entered and electronically signed by Jack Glass MD 11/16/24 12:07:
Total time spent on d/c = 31 min. This included today's physical exam, progress note, review of laboratory and diagnostic data, preparation of discharge documents and prescriptions, and discussions about the pt's hospital course and discharge plan
with the patient and other medical terminologist involved in the patient's care.
Addendum entered and electronically signed by Jack Glass MD 11/16/24 11:52:
Acute postoperative delirium
R hip fx was ultifactorial and due to low level trauma and likely age related osteoporosis
Original Note:
Today's Communication/Plan
-
d/c
Assessment / Plan
Assessment / Plan
Gen: NAD, Awake and alert
Eyes: EOMI, PERRLA, no scleral icterus.
Neck: supple.
CV: remains RRR, +S1/S2, no m/r/g.
Resp: remains CTAB anteriorly, no rales, wheezes, or rhonchi.
Abd: +BS, soft, NT, ND
Skin: No rashes.
Neuro: continues to remain CN 2-12 intact, non-focal.
Psych: Normal mood and affect.
R femur/pelvis Xray: ACUTE COMMINUTED INTERTROCHANTERIC FRACTURE of the RIGHT PROXIMAL FEMUR.
Acute comminuted intertrochanteric right proximal femur fracture:
-s/p Insertion right long cephalomedullary nail on 11/14/24
-ABLA due to surgery, s/p 2U pRBCs
Other problems:
DM2: a1c 6.8%, SSI/accuchecks
Essential HTN: cont Norvasc
HLD: cont statin
CKD3b
FULL/Lovenox
Medically cleared for d/c. Case management aware.
Anticipated Discharge: Today
Subjective/Interval History
-
Date of Service: November 16, 2024
Denies CP/SOB.
Objective Data
-
Labs:
Laboratory Results
11/16/24
05:45
WBC 10.0
Hgb 10.2 L D
Hct 32.0 L
Plt Count 163
Sodium 140
Potassium 4.4
Chloride 107
Carbon Dioxide 24
BUN 40 H
Creatinine 1.5 H
Glucose 170 H
Calcium 8.3 L
Vital Signs:
Vital Signs
Temp Pulse Resp BP Pulse Ox
98.6 F 88 17 144/78 92
11/15/24 23:38 11/16/24 07:17 11/15/24 23:38 11/16/24 07:17 11/15/24 15:31
I&O
11/15/24 11/16/24 11/17/24
06:59 06:59 06:59
Intake Total 150 / 150 1879
Balance 150 / 150 1879
--- NOTE | 2024-11-16 09:27 | CM ---
Addendum entered by Vincent Bonilla 11/16/24 11:44:
[employer] has approved the pt for skilled level of care at [facility] for 7 initial days from today 11/16/24 till 11/22/24, Auth is: [id number]
An auth info forwarded to [facility] liaison and she confirmed that pt is accepted for admission today and 5:30 p.m. tack picker time requested.
arranged ambulance transport BLS with tack picker time [facility] p.m. [facility] with .
[facility] nursing report: [phone]
Discharge instructions fax: [phone]
D/C plan: [facility] today.
Addendum entered by Vincent Bonilla 11/16/24 10:41:
[facility] offered a bed.
Both pt and her daughter are aware, expressed their agreement.
[facility]
Accepting physician: Erik Andino [phone]
SARINA initiated an auth with [employer], ref#: [id number]
Requested pt's clinical faxed to [employer] at [phone]. Awaiting for an auth.
D/C plan: [facility] when a full auth is available.
Original Note:
CM following re: discharge planning.
Reviewed pt's chart, met with pt.
Pt is postop day 2 status post insertion right long cephalomedullary nail for comminuted peritrochanteric femur fracture.
PT and OT continue recommending SNF level of care.
According to MD pt is medically stable to be discharged today.
A referral to following SNFs noted: [facility], [facility], [facility]. [facility], [facility].
Updated pt's clinical faxed to above SNF
[facility] denied a referral.
SARINA spoke to [facility] director food and beverage [facility] [phone] and she stated she is working on the referral.
CM spoke to [facility] SNF admissions liaison Migdalia and she is working on the referral.
[facility] and [facility] reviewing a referral.
D/C plan: preferred SNF.
CM will follow to assist pot with discharge to a preferred SNF.
[2024-11-16] MEDS: ROXICODONE 10 MG PO (10:01)
--- NOTE | 2024-11-16 10:45 | PN.CDI ---
CDI
- -
CDI:
Physician Documentation Request
Admit Date: 11/13/24 12:27
Dear Doctor Maria Luisa,
Please review the following and provide your response in the progress notes.
Clinical Indicators:
ED, 11/13
#...states her slipper got caught and she fell directly on her right hip.
#Differential Diagnosis Includes:
#...mechanical fall at home this morning.
#...Fell directly on R hip and RLE is shortened and externally rotated on arrival.
#Discharge Problem:
#...Closed fracture of right hip
Please clarify the following regarding the etiology of the right hip fracture:
Multifactorial, low level trauma and age related osteoporosis
Traumatic fracture only
Other(please specify)
Type Fracture
Age-related With current pathological fx
Drug induced (specify drug) without current pathological fx
Idiopathic
Osteoporosis of disuse
Due to post surgical malabsorption
Post traumatic
Post oophorectomy osteoporosis
Use of terms such as suspected, likely, concern for, or probable (associated with a specific diagnosis that is being evaluated, monitored, or treated as if it exists) are acceptable and can be coded in the inpatient setting, when documented at the
time of discharge.
Thank you,
Reshma Byrd RN BSN CCDS
CDI Specialist
Please contact via tiger text
Please use your independent medical judgment in providing your response.
--- NOTE | 2024-11-16 10:54 | PN.CDI ---
CDI
- -
CDI:
Physician Documentation Request
Admit Date: 11/13/24 12:27
Dear Doctor Maria Luisa,
Please review the following and provide your response in the progress notes.
Clinical Indicators:
11/14/24 12:50 (created 11/14/24 12:52) - Patient Care Note
#Patient postop r-hip gamma nail, agitated/attempting to remove things
#...and also attempting to hurt staff.
#...Yelling expletives.
#...In 2-point restraints at this point, hospitalist notified.
Based on the above and your clinical assessment, please clarify in the most likely etiology of the confusion/altered mental status.
Encephalopathy - indicate type, such as metabolic, toxic, septic, alcoholic, anoxic, hypertensive etc. due to a specific condition such as UTI, CVA, hyponatremia etc.
Acute Delirium - indicate known or suspected etiology such as postoperative, due to opioids or other drugs etc. Can also indicate unknown or mixed etiologies.
Other (please specify)
Use of terms such as suspected, likely, concern for, or probable (associated with a specific diagnosis that is being evaluated, monitored, or treated as if it exists) are acceptable and can be coded in the inpatient setting, when documented at the
time of discharge.
Thank you,
Reshma Byrd RN BSN CCDS
CDI Specialist
Please contact via tiger text
Please use your independent medical judgment in providing your response.
[2024-11-16] MEDS: DILAUDID 0.5 MG IV (11:16)
[2024-11-16 12:04] LABS: Glucose - Point of Care 207 mg/dl (70-99)
[2024-11-16] MEDS: NOVOLOG FLEXPEN-LOW RESISTANCE 2 UNITS SC (12:34)
--- NOTE | 2024-11-16 14:43 | W.DCSUMMARY ---
Discharge Summary
Discharge Data
Date of Admission: 11/13/24
Date of Discharge: 11/16/24
-
Pending Results: No
Hospital Course
Primary diagnoses:
R hip fracture, multifactorial and due to low level trauma and likely age related osteoporosis
Acute blood loss anemia due to surgery
Secondary diagnoses:
Acute postoperative delirium
Type 2 diabetes mellitus
Essential hypertension
Hyperlipidemia
Chronic kidney disease stage 3b
Consultants:
Orthopedics
Imaging:
R femur/pelvis Xray: ACUTE COMMINUTED INTERTROCHANTERIC FRACTURE of the RIGHT PROXIMAL FEMUR.
Hospital course: 89-year-old female who presented with a mechanical fall resulting in a right hip fracture as outlined in the H&P done on admission. The patient was taken to the OR on 11/14/24 and underwent insertion right long cephalomedullary nail.
She had acute blood loss anemia due to surgery received 2 units of packed red blood cells. She had acute postoperative delirium which resolved. She was discharged in medically stable condition
Discharge Plan
-
Patient Disposition: Jail/SNF
Discharge Diagnosis/Procedures: R hip fracture, multifactorial and due to low level trauma and likely age related osteoporosis
Acute blood loss anemia due to surgery
Acute postoperative delirium
Condition: Good
Diet: Diabetic, Carb Controlled
Activity: With assistance
Driving Restrictions: Not until seen by your Dr
Blood Work: BMP and CBC in 1 week, prescription from PCP
Referrals:
Annelise Schafer CRNP [Family Provider] - in less than 1 week
Prescriptions:
New
polyethylene glycol 3350 17 gram Powder In Packet
17 g PO DAILYPRN PRN (Reason: constipation) Qty: 0 0RF
sennosides-docusate sodium 8.6-50 mg Tablet
1 tab PO BIDPRN PRN (Reason: constipation) Qty: 0 0RF
docusate sodium 100 mg Capsule
100 mg PO BID Qty: 0 0RF
oxycodone 5 mg Tablet
5 mg PO Q4HPRN PRN (Reason: mild pain) Qty: 5 0RF
enoxaparin 30 mg/0.3 mL Syringe
30 mg SC DAILY Qty: 0 0RF
Continued
amlodipine 5 MG tablet
5 mg PO DAILY
simvastatin 20 MG tablet
40 mg PO QPM
fluoxetine 10 MG capsule
10 mg PO DAILY
glipizide 2.5 mg Tablet Extended Release 24hr
2.5 mg PO DAILY
aspirin 81 mg Tablet
81 mg PO DAILY
Discharge Orders:
Discharge Patient (As Directed); Ordered 11/16/24
Ordered By: Jack Glass
Discharge Date and Time
Print Language: SALVADOREAN
[2024-11-16 15:00] VITALS: BP 134/59
== END 2024-11-16 17:25 | DRG 481 ==
LOC: 2 SOUTH 12:27
PROVIDERS: Physician Assistant; ADMITTING PHYSICIAN Internal Medicine; CONSULT PHYSICIAN Orthopaedic Surgery; EMERGENCY PHYSICIAN Emergency Medicine; FAMILY PHYSICIAN Nurse Practitioner
PROC: 0QS606Z Reposition Right Upper Femur with Intramedullary Internal Fixation Device, Open Approach (ICD-10-PCS; 2024-11-14)
PROC: 30233N1 Transfusion of Nonautologous Red Blood Cells into Peripheral Vein, Percutaneous Approach (ICD-10-PCS; 2024-11-15)
DX: M80.051A Age-related osteoporosis with current pathological fracture, right femur, initial encounter for fracture (principal); D62 Acute posthemorrhagic anemia; F05 Delirium due to known physiological condition; I12.9 Hypertensive chronic kidney disease with stage 1 through stage 4 chronic kidney disease, or unspecified chronic kidney disease; S51.012A Laceration without foreign body of left elbow, initial encounter; N18.32 Chronic kidney disease, stage 3b; E11.22 Type 2 diabetes mellitus with diabetic chronic kidney disease; F32.A Depression, unspecified; E78.00 Pure hypercholesterolemia, unspecified; W01.0XXA Fall on same level from slipping, tripping and stumbling without subsequent striking against object, initial encounter; Y93.89 Activity, other specified; Y92.000 Kitchen of unspecified non-institutional (private) residence as the place of occurrence of the external cause; Z60.2 Problems related to living alone; Z79.82 Long term (current) use of aspirin; Z79.84 Long term (current) use of oral hypoglycemic drugs; Z87.891 Personal history of nicotine dependence; Z88.8 Allergy status to other drugs, medicaments and biological substances
CPT/HCPCS: 72170; 72192; 73501; 73552; 76000; 80048; 80053; 82550; 82962; 83036; 83735; 84443; 85025; 85027; 85610; 85730; 86850; 86900; 86901; 86920; 90471; 90715; 93005; 96374; 97163; 97167; 99285; P9016